=== PATIENT | male | born 1970 | race Caucasian/White ===

== ENCOUNTER 2017-08-05 18:25 | Inpatient (IN) | payer OTHER ==
[~2017-08-05] VITALS: Ht 177.8 cm; Wt 113.4 kg
--- NOTE | ~2017-08-05 | EKG ---
[address] [place] [address] ELECTROCARDIOGRAM REPORT Name: FLEX STATON Room #: 363-P ADM IN M.R.#: [id number] Admission: 08/05/17 Attend Phys: Sonny Burks Discharge: Date of : 72 Report #: [id number] THIS REPORT FOR: //name// [facility] Test Date: 2017-08-06 Test Time: 13:12:23 Pat Name: FLEX STATON Department: Room: 363 P Gender: M Patient Financial Services Coordinator: Nu WOLFE : 1970 Requested By: Michael Arrington Order Number: [id number] MD: Jonathan Gutiérrez Measurements Intervals [place] Rate: 105 P: 22 [place]: 150 QRS: 38 QRSD: 89 T: 34 QT: 350 QTc: 463 Interpretive Statements Sinus tachycardia Low voltage, extremity leads Compared to ECG 08/05/2017 18:29:37 No significant changes Electronically Signed On 08-07-2017 12:20:16 MOLDER by Jonathan Gutiérrez [email or web address] <ELECTRONICALLY SIGNED> By: Jonathan Gutiérrez MD 08/07/17 1220 1312 1312 MD OLVIN Ruelas
--- NOTE | ~2017-08-05 | EKG ---
[address] [place] [address] ELECTROCARDIOGRAM REPORT Name: FLEX STATON Room #: 363-P ADM IN M.R.#: [id number] Admission: 08/05/17 Attend Phys: Sonny Burks Discharge: Date of : 72 Report #: [id number] THIS REPORT FOR: //name// [facility] ED Test Date: 2017-08-05 Test Time: 18:29:37 Pat Name: FLEX STATON Department: Room: 363 Gender: M Resident Doctor: MZOOK : 1970 Requested By: Sophie Dugan Order Number: [id number] MD: Jose Forrest Measurements Intervals [place] Rate: 122 P: 61 [place]: 150 QRS: 32 QRSD: 97 T: 49 QT: 325 QTc: 463 Interpretive Statements Sinus tachycardia Low voltage, extremity leads No previous ECG available for comparison Electronically Signed On 08-06-2017 8:31:15 ANATOMY AND PHYSIOLOGY INSTRUCTOR by Jose Forrest [email or web address] <ELECTRONICALLY SIGNED> By: Jose Forrest MD, [facility] 08/06/17 0831 1829 1829 Jose Forrest MD, FACC /EPI
[2017-08-05 18:30] VITALS: BP 153/91
[2017-08-05] MEDS ORDERED: VENTOLIN HFA 1818 GM INH (18:34)
[2017-08-05] MEDS ORDERED: PREDNISONE50 MG PO (20:53)
[2017-08-05] MEDS ORDERED: PROAIR HFA8.5 GM INH (20:53)
[2017-08-05 21:45] LABS: ABSOLUTE NEUTROPHILS 5.5 thou/uL (1.4-8.2); BASOPHILS 0.6 % (0.0-2.0); EOSINOPHILS 10.9 % (0.0-3.0); HEMATOCRIT 42.6 % (42.0-52.0); HEMOGLOBIN 14.7 gm/dL (14.0-18.0); LYMPHOCYTES 11.6 % (24.0-44.0); MCH 29.4 pg (26.0-34.0); MCHC 34.6 g/dL (28.0-37.0); MCV 85.1 fL (80.0-100.0); MONOCYTES 5.2 % (1.0-8.0); PLATELET COUNT 164 thou/uL (150-400); POLYS 71.7 % (36.0-66.0); RBC 5.01 mil/uL (4.50-6.00); RDW 14.4 % (10.5-14.5); WBC 7.7 thou/uL (4.0-11.0)
[2017-08-05 21:50] VITALS: BP 138/90
[2017-08-05 21:53] LABS: CREATININE 0.9 mg/dL (0.7-1.3); POTASSIUM 4.2 mmol/L (3.5-5.1)
[2017-08-05 22:15] VITALS: BP 134/84
[2017-08-05 22:25] VITALS: BP 154/91
[2017-08-05 23:45] VITALS: BP 142/94
[2017-08-06 04:03] VITALS: BP 135/94
[2017-08-06 07:42] VITALS: BP 137/99
[2017-08-06 15:33] VITALS: BP 139/95
[2017-08-06 20:20] VITALS: BP 143/94
[2017-08-07 04:31] LABS: HEMATOCRIT 42.5 % (42.0-52.0); HEMOGLOBIN 14.6 gm/dL (14.0-18.0); MCH 29.4 pg (26.0-34.0); MCHC 34.3 g/dL (28.0-37.0); MCV 85.6 fL (80.0-100.0); RBC 4.97 mil/uL (4.50-6.00); RDW 14.3 % (10.5-14.5); WBC 10.6 thou/uL (4.0-11.0)
[2017-08-07 04:45] LABS: CREATININE 0.9 mg/dL (0.7-1.3); POTASSIUM 4.3 mmol/L (3.5-5.1)
[2017-08-07 05:10] VITALS: BP 139/86
[2017-08-07 07:26] VITALS: BP 124/76
[2017-08-07] MEDS ORDERED: BENZONATATE100 MG PO (15:20)
[2017-08-07] MEDS ORDERED: PREDNISONE 10 M10 MG PO (15:27)
[2017-08-07] MEDS ORDERED: VENTOLIN HFA 1818 GM INH (15:33)
[2017-08-07 15:37] VITALS: BP 124/76
[2017-08-10 00:09] LABS: ADENOVIRUS Negative (Negative); INFLUENZA A Negative (Negative); INFLUENZA B Negative (Negative); METAPNEUMOVIRUS Negative (Negative); PARAINFLUENZA 1 Negative (Negative); PARAINFLUENZA 2 Negative (Negative); PARAINFLUENZA 3 Negative (Negative); RHINOVIRUS Negative (Negative); RSV A Negative (Negative); RSV B Negative (Negative)
== END 2017-08-07 16:17 | disposition home or self-care (01) | DRG 189 ==
LOC: ER 18:25 → EROBS 21:17 → 3W 22:22
PROVIDERS: Emergency Medicine; Hospitalist; Nurse Practitioner Acute Care
DX: J96.21 Acute and chronic respiratory failure with hypoxia (principal); J45.901 Unspecified asthma with (acute) exacerbation; R00.0 Tachycardia, unspecified; E66.9 Obesity, unspecified; Z79.899 Other long term (current) drug therapy; Z68.35 Body mass index [BMI] 35.0-35.9, adult; Z23 Encounter for immunization
CPT/HCPCS: 10879